=== PATIENT | male | born 1965 | race Caucasian/White ===

== ENCOUNTER → 2016-08-19 | Outpatient (CLI) | payer BC | LOC: KOH-I 11:16 | DX: G89.4 Chronic pain syndrome (principal); M96.1 Postlaminectomy syndrome, not elsewhere classified; M47.816 Spondylosis without myelopathy or radiculopathy, lumbar region; M48.06 Spinal stenosis, lumbar region; M48.07 Spinal stenosis, lumbosacral region; M51.37 Other intervertebral disc degeneration, lumbosacral region | CPT/HCPCS: 72131 ==

== ENCOUNTER 2020-07-25 11:37 | Emergency (ER) | payer OTHER ==
[~2020-07-25 11:37] MED LIST: ALLOPURINOL100 MG PO; ALPHA LIPOIC A200 MG PO; ALPHA LIPOIC ACID PO; AMLODIPINE BESY10 MG PO; ASPIRIN EC81 MG PO; AZITHROMYCIN250 MG PO; CARVEDILOL12.5 MG PO; CHLORTHALIDONE25 MG PO; CLONIDINE HCL0.1 MG PO; CORDARONE 200M200 MG PO; COREG 25MG TAB25 MG PO; CYMBALTA 30 MG30 MG PO; DOXAZOSIN MESYLA4 MG PO; DULOXETINE HCL60 MG PO; ELIQUIS5 MG PO; FISH OIL 1,0001 EAC3 PO; GLUCOTROL5 MG PO; HYDROCHLOROTH12.5 MG PO; HYDROCHLOROTHIA25 MG PO; HYDROCODON-ACE1 EAC2 PO; IMDUR ER TAB 3030 MG PO; ISOSORBIDE MONO30 MG PO; LASIX20 MG PO; LEVEMIR100 UNIT/1 SQ; LIPITOR TAB 2020 MG PO; LISINOPRIL40 MG PO; METOPROLOL TAR100 MG PO; NEURONTIN 300300 MG PO; NEURONTIN600 MG PO; NITROGLYCERIN0.4 MG SL; NORCO 10-325 T1 EACH PO; NORCO 5-325 TA1 EACH PO; NORVASC10 MG PO; NOVOLIN 70100 UNIT/1 SQ; NOVOLIN R SQ; NOVOLIN R100 UNIT/1 INJ; NOVOLIN R100 UNIT/1 SQ; OMNICEF 300 MG300 MG PO; SUPER B COMPLE150 MG PO; VITAMIN D31000 UNI1 PO; ZESTRIL40 MG PO; ZOFRAN ODT 4 MG4 MG PO; ZYLOPRIM 100 M100 MG PO
[2020-07-25 13:32] LABS: RED BLOOD COUNT 3.81 M/UL (4.20-5.50); WHITE BLOOD COUNT 9.4 K/UL (4.5-11.0)
[2020-07-25] MEDS ORDERED: BACTRIM DS TAB1 EACH PO (16:08)
[2020-07-25] MEDS ORDERED: KEFLEX CAP 500500 MG PO (16:08)
[2020-12-21] MEDS ORDERED: PERCOCET 5/325 T1 EA PO (11:47)
[2020-12-21] MEDS ORDERED: NOVOLOG FL100 UNIT/1 INJ (11:53)
== END 2020-07-25 16:50 | disposition home or self-care (01) ==
LOC: ER1 11:37
PROVIDERS: Physician Assistant
DX: M87.878 Other osteonecrosis, left toe(s) (principal); M86.8X8 Other osteomyelitis, other site; S80.01XA Contusion of right knee, initial encounter; E11.40 Type 2 diabetes mellitus with diabetic neuropathy, unspecified; R06.02 Shortness of breath; W19.XXXA Unspecified fall, initial encounter; Y92.238 Other place in hospital as the place of occurrence of the external cause
CPT/HCPCS: 73564; 73630; 80053; 85025; 85652; 86140

== ENCOUNTER 2020-07-26 15:45 | Inpatient (IN) | payer OTHER ==
[~2020-07-26] VITALS: Ht 190.5 cm; Wt 165.6 kg
[~2020-07-26 15:45] MED LIST changes: +BACTRIM DS TAB1 EACH PO; +KEFLEX CAP 500500 MG PO
[2020-07-26 19:45] LABS: HEMOGLOBIN 11.1 gm/dl (14.0-17.5); RED BLOOD COUNT 3.86 M/UL (4.20-5.50); WHITE BLOOD COUNT 12.7 K/UL (4.5-11.0)
[2020-07-27 04:06] LABS: HEMOGLOBIN 10.3 gm/dl (14.0-17.5); RED BLOOD COUNT 3.63 M/UL (4.20-5.50); WHITE BLOOD COUNT 9.6 K/UL (4.5-11.0)
[2020-07-29 04:42] LABS: HEMOGLOBIN 10.5 gm/dl (14.0-17.5); RED BLOOD COUNT 3.61 M/UL (4.20-5.50); WHITE BLOOD COUNT 7.2 K/UL (4.5-11.0)
[2020-07-30 02:54] LABS: HEMOGLOBIN 9.4 gm/dl (14.0-17.5); RED BLOOD COUNT 3.38 M/UL (4.20-5.50); WHITE BLOOD COUNT 7.8 K/UL (4.5-11.0)
[2020-07-30] MEDS ORDERED: BACTRIM DS TAB1 EACH PO (12:13)
[2020-07-30] MEDS ORDERED: ELIQUIS5 MG PO (12:13)
[2020-07-30] MEDS ORDERED: KEFLEX750 MG PO (16:30)
[2020-12-21] MEDS ORDERED: PERCOCET 5/325 T1 EA PO (11:47)
[2020-12-21] MEDS ORDERED: NOVOLOG FL100 UNIT/1 INJ (11:53)
== END 2020-07-30 16:58 | disposition home health service (06) | DRG 617 ==
LOC: MED SURG 4 15:45
PROVIDERS: Internal Medicine; Podiatrist Foot & Ankle Surgery; ADMIT Internal Medicine
PROC: 0Y6Y0Z0 Detachment at Left 5th Toe, Complete, Open Approach (ICD-10-PCS; principal; 2020-07-28 08:00)
DX: E11.69 Type 2 diabetes mellitus with other specified complication (principal); M86.8X7 Other osteomyelitis, ankle and foot; E11.52 Type 2 diabetes mellitus with diabetic peripheral angiopathy with gangrene; I96 Gangrene, not elsewhere classified; I13.0 Hypertensive heart and chronic kidney disease with heart failure and stage 1 through stage 4 chronic kidney disease, or unspecified chronic kidney disease; Z68.42 Body mass index [BMI] 45.0-49.9, adult; I48.20 Chronic atrial fibrillation, unspecified; I50.42 Chronic combined systolic (congestive) and diastolic (congestive) heart failure; Z20.822 Contact with and (suspected) exposure to COVID-19; B95.61 Methicillin susceptible Staphylococcus aureus infection as the cause of diseases classified elsewhere; E11.22 Type 2 diabetes mellitus with diabetic chronic kidney disease; N18.30 Chronic kidney disease, stage 3 unspecified; E66.01 Morbid (severe) obesity due to excess calories; E78.5 Hyperlipidemia, unspecified; G47.33 Obstructive sleep apnea (adult) (pediatric); I25.10 Atherosclerotic heart disease of native coronary artery without angina pectoris; Z95.1 Presence of aortocoronary bypass graft; Z79.01 Long term (current) use of anticoagulants; Z90.49 Acquired absence of other specified parts of digestive tract; Z88.1 Allergy status to other antibiotic agents; Z88.2 Allergy status to sulfonamides; Z79.82 Long term (current) use of aspirin; Z79.4 Long term (current) use of insulin; Z79.899 Other long term (current) drug therapy; Z82.49 Family history of ischemic heart disease and other diseases of the circulatory system; Z80.0 Family history of malignant neoplasm of digestive organs; Z80.9 Family history of malignant neoplasm, unspecified; Z83.3 Family history of diabetes mellitus; E11.40 Type 2 diabetes mellitus with diabetic neuropathy, unspecified; E11.65 Type 2 diabetes mellitus with hyperglycemia; M19.90 Unspecified osteoarthritis, unspecified site
CPT/HCPCS: ECHO; 36415; 71045; 73564; 73630; 80048; 80053; 80202; 82962; 83036; 83735; 83880; 84443; 85025; 85027; 85379; 85610; 85652; 86140; 87040; 87070; 87077; 87186; 87205; 93005; 93306; 93925; 93970; 94660; 94760; 97161; 99283; J1335; J1940; J2001; J2270; J2405; J2704; J2795; J3370; J7070; J7120; Q4133; U0002

== ENCOUNTER → 2020-08-31 | Outpatient (CLI) | payer OTHER ==
[~2020-08-31] MED LIST changes: +CLINDAMYCIN HC300 MG PO; +EFFIENT10 MG PO; +FUROSEMIDE40 MG PO; +GABAPENTIN600 MG PO; +KEFLEX CAP 250250 MG PO; +KEFLEX750 MG PO; +NOVOLOG FL100 UNIT/1 INJ; +PERCOCET 5/325 T1 EA PO
[2020-08-31 10:04] LABS: HEMOGLOBIN 11.6 gm/dl (14.0-17.5); RED BLOOD COUNT 4.01 M/UL (4.20-5.50); WHITE BLOOD COUNT 5.7 K/UL (4.5-11.0)
== END ==
LOC: LAB 09:33
PROVIDERS: Physician Assistant
DX: I25.10 Atherosclerotic heart disease of native coronary artery without angina pectoris (principal); R06.02 Shortness of breath; I48.0 Paroxysmal atrial fibrillation; I50.22 Chronic systolic (congestive) heart failure
CPT/HCPCS: 36415; 80053; 83880; 85025

== ENCOUNTER → 2020-09-11 | Outpatient (CLI) | payer OTHER | LOC: LAB 13:53 | PROVIDERS: Physician Assistant | DX: I25.10 Atherosclerotic heart disease of native coronary artery without angina pectoris (principal); I50.22 Chronic systolic (congestive) heart failure; R06.02 Shortness of breath | CPT/HCPCS: 36415; 80048 ==

== ENCOUNTER → 2020-09-27 | Outpatient (CLI) | payer OTHER | LOC: LAB 13:01 | PROVIDERS: Internal Medicine Nephrology | DX: N18.30 Chronic kidney disease, stage 3 unspecified (principal) | CPT/HCPCS: 36415; 80053; 82570; 84156 ==

== ENCOUNTER → 2020-10-05 | Outpatient (CLI) | payer OTHER | LOC: LAB 08:49 | PROVIDERS: Internal Medicine Nephrology | DX: N18.30 Chronic kidney disease, stage 3 unspecified (principal) | CPT/HCPCS: 36415; 80048 ==

== ENCOUNTER → 2020-10-24 | Outpatient (CLI) | payer OTHER | LOC: LAB 13:47 | PROVIDERS: Internal Medicine Nephrology | DX: N18.30 Chronic kidney disease, stage 3 unspecified (principal) | CPT/HCPCS: 36415; 80053; 82570; 84156 ==

== ENCOUNTER → 2020-12-19 | Outpatient (CLI) | payer OTHER ==
[~2020-12-19] MED LIST changes: +CEFDINIR300 MG PO; +CLARITIN 10MG T10 MG PO; +DOXYCYCLINE HY100 MG PO; +FLOMAX 0.4 MG0.4 MG PO; +LASIX 40 MG TAB40 MG PO; +NOVOLIN 70100 UNIT/1 SC; -NOVOLOG FL100 UNIT/1 INJ; +NOVOLOG FL100 UNIT/1 SC; +PROTONIX 40 MG40 M1 PO
[2020-12-19 15:21] LABS: HEMOGLOBIN 11.9 gm/dl (14.0-17.5); RED BLOOD COUNT 4.12 M/UL (4.20-5.50); WHITE BLOOD COUNT 6.8 K/UL (4.5-11.0)
== END ==
LOC: LAB 13:37
PROVIDERS: Internal Medicine Cardiovascular Disease
DX: I48.92 Unspecified atrial flutter (principal); I25.10 Atherosclerotic heart disease of native coronary artery without angina pectoris; R55 Syncope and collapse; I51.7 Cardiomegaly
CPT/HCPCS: 36415; 71046; 80048; 85025

== ENCOUNTER 2020-12-21 09:29 | Outpatient (CLI) | payer OTHER ==
[~2020-12-21] VITALS: Ht 190.5 cm; Wt 176.9 kg
[~2020-12-21 09:29] MED LIST changes: -CEFDINIR300 MG PO; -CLARITIN 10MG T10 MG PO; -CLINDAMYCIN HC300 MG PO; -DOXYCYCLINE HY100 MG PO; -EFFIENT10 MG PO; -FLOMAX 0.4 MG0.4 MG PO; -FUROSEMIDE40 MG PO; -GABAPENTIN600 MG PO; -GLUCOTROL5 MG PO; -KEFLEX CAP 250250 MG PO; -LASIX 40 MG TAB40 MG PO; -NOVOLIN 70100 UNIT/1 SC; -NOVOLOG FL100 UNIT/1 SC; -PERCOCET 5/325 T1 EA PO; -PROTONIX 40 MG40 M1 PO
[2020-12-21] MEDS ORDERED: GABAPENTIN600 MG PO (11:44)
[2020-12-21] MEDS ORDERED: ALPHA LIPOIC A200 MG PO (11:49)
[2020-12-21] MEDS ORDERED: FUROSEMIDE40 MG PO (11:49)
[2020-12-21] MEDS ORDERED: EFFIENT10 MG PO (11:50)
[2020-12-21] MEDS ORDERED: HYDROCHLOROTHIA25 MG PO (11:51)
[2020-12-21] MEDS ORDERED: CLINDAMYCIN HC300 MG PO (17:14)
[2020-12-21] MEDS ORDERED: KEFLEX CAP 250250 MG PO (17:14)
[2021-02-07] MEDS ORDERED: DOXYCYCLINE HY100 MG PO (15:53)
== END 2020-12-22 08:22 | disposition home or self-care (01) ==
LOC: CATH 09:29 → CDU 19:30 → PROG CARE 19:30 → CATH 19:30 → PROG CARE 19:31 → CDU 19:31 → PROG CARE 19:41 → CATH 12-22 08:22 → PROG CARE 12-22 08:22 → CDU 12-25 15:53 → PROG CARE 12-25 15:53
PROC: 0JH606Z Insertion of Pacemaker, Dual Chamber into Chest Subcutaneous Tissue and Fascia, Open Approach (ICD-10-PCS; principal; 2020-12-21)
PROC: 02HK0JZ Insertion of Pacemaker Lead into Right Ventricle, Open Approach (ICD-10-PCS; 2020-12-21)
PROC: 02H60JZ Insertion of Pacemaker Lead into Right Atrium, Open Approach (ICD-10-PCS; 2020-12-21)
DX: I48.92 Unspecified atrial flutter (principal); I50.22 Chronic systolic (congestive) heart failure; I13.0 Hypertensive heart and chronic kidney disease with heart failure and stage 1 through stage 4 chronic kidney disease, or unspecified chronic kidney disease; Z68.41 Body mass index [BMI] 40.0-44.9, adult; E66.01 Morbid (severe) obesity due to excess calories; Z20.822 Contact with and (suspected) exposure to COVID-19; I25.5 Ischemic cardiomyopathy; N18.30 Chronic kidney disease, stage 3 unspecified; R06.02 Shortness of breath; M19.90 Unspecified osteoarthritis, unspecified site; M10.9 Gout, unspecified; E78.00 Pure hypercholesterolemia, unspecified; R42 Dizziness and giddiness; E11.9 Type 2 diabetes mellitus without complications; I48.0 Paroxysmal atrial fibrillation; I25.119 Atherosclerotic heart disease of native coronary artery with unspecified angina pectoris; Z79.01 Long term (current) use of anticoagulants; Z79.4 Long term (current) use of insulin; Z88.2 Allergy status to sulfonamides; Z88.8 Allergy status to other drugs, medicaments and biological substances; Z95.1 Presence of aortocoronary bypass graft; Z99.89 Dependence on other enabling machines and devices; Z89.432 Acquired absence of left foot; Z91.040 Latex allergy status; Z87.442 Personal history of urinary calculi; I25.2 Old myocardial infarction; Z82.61 Family history of arthritis; Z82.49 Family history of ischemic heart disease and other diseases of the circulatory system; Z80.0 Family history of malignant neoplasm of digestive organs; Z83.42 Family history of familial hypercholesterolemia; Z83.3 Family history of diabetes mellitus
CPT/HCPCS: 33208; 33210; 82962; 93005; 93609; 93620; 93621; 93623; 99152; 99153; C1733; C1766; C1785; C1898; J1200; J1644; J2250; J2405; J3010; J3370; J7040; J7050

== ENCOUNTER → 2021-01-03 | Outpatient (CLI) | payer OTHER ==
[~2021-01-03] MED LIST changes: +CEFDINIR300 MG PO; +CLARITIN 10MG T10 MG PO; +CLINDAMYCIN HC300 MG PO; +DOXYCYCLINE HY100 MG PO; +EFFIENT10 MG PO; +FLOMAX 0.4 MG0.4 MG PO; +FUROSEMIDE40 MG PO; +GABAPENTIN600 MG PO; +GLUCOTROL5 MG PO; +KEFLEX CAP 250250 MG PO; +LASIX 40 MG TAB40 MG PO; +NOVOLIN 70100 UNIT/1 SC; +NOVOLOG FL100 UNIT/1 SC; +PERCOCET 5/325 T1 EA PO; +PROTONIX 40 MG40 M1 PO
== END ==
LOC: LAB 11:44
PROVIDERS: Internal Medicine Nephrology
DX: N18.30 Chronic kidney disease, stage 3 unspecified (principal)
CPT/HCPCS: 36415; 80053; 82570; 84156

== ENCOUNTER 2021-02-09 09:49 | Inpatient (IN) | payer OTHER ==
[~2021-02-09] VITALS: Ht 190.5 cm; Wt 144.9 kg
[~2021-02-09 09:49] MED LIST changes: -CEFDINIR300 MG PO; -CLARITIN 10MG T10 MG PO; -FLOMAX 0.4 MG0.4 MG PO; -GLUCOTROL5 MG PO; -LASIX 40 MG TAB40 MG PO; -NOVOLIN 70100 UNIT/1 SC; -NOVOLOG FL100 UNIT/1 SC; -PERCOCET 5/325 T1 EA PO; -PROTONIX 40 MG40 M1 PO
[2021-02-09 10:24] LABS: RED BLOOD COUNT 4.18 M/UL (4.20-5.50); WHITE BLOOD COUNT 12.2 K/UL (4.5-11.0)
[2021-02-09 10:51] LABS: BUN/CREATININE RATIO 18 (0-10)
[2021-02-10 05:48] LABS: HEMOGLOBIN 10.7 gm/dl (14.0-17.5)
[2021-02-10 05:49] LABS: RED BLOOD COUNT 3.72 M/UL (4.20-5.50)
[2021-02-10] MEDS ORDERED: NEURONTIN600 MG PO (08:02)
[2021-02-10] MEDS ORDERED: CLARITIN 10MG T10 MG PO (10:02)
[2021-02-10] MEDS ORDERED: PROTONIX 40 MG40 M1 PO (10:03)
[2021-02-10] MEDS ORDERED: GLUCOTROL5 MG PO (11:18)
[2021-02-10] MEDS ORDERED: PERCOCET 5/325 T1 EA PO (11:47)
[2021-02-10] MEDS ORDERED: NOVOLOG FL100 UNIT/1 SC (11:53)
[2021-02-10] MEDS ORDERED: NOVOLIN 70100 UNIT/1 SC (15:57)
[2021-02-10 23:30] LABS: BORDETELLA PARAPERTUSSIS Not Detected (Not Detectd); BORDETELLA PERTUSSIS Not Detected (Not Detectd); CHLAMYDIA PNEUMONIAE Not Detected (Not Detectd); CORONAVIRUS HKU1 Not Detected (Not Detectd); CORONAVIRUS OC43 Not Detected (Not Detectd); CORONOAVIRUS 229E Not Detected (Not Detectd); HUMAN METAPNEUMOVIRUS Not Detected (Not Detectd); HUMAN RHINOVIRUS/ENTEROVIRUS Not Detected (Not Detectd); INFLUENZA A Not Detected (Not Detectd); INFLUENZA B Not Detected (Not Detectd); MYCOPLASMA PNEUMONIAE Not Detected (Not Detectd); PARAINFLUENZA VIRUS 1 Not Detected (Not Detectd); PARAINFLUENZA VIRUS 2 Not Detected (Not Detectd); PARAINFLUENZA VIRUS 3 Not Detected (Not Detectd); PARAINFLUENZA VIRUS 4 Not Detected (Not Detectd); RESPIRATORY SYNCYTIAL VIRUS Not Detected (Not Detectd)
[2021-02-11 00:37] LABS: SARS-CoV-2 NOT DETECTED (Not Detectd)
[2021-02-11 00:38] LABS: CORONAVIRUS NL63 DETECTED (Not Detectd)
[2021-02-11 03:55] LABS: HEMOGLOBIN 11.2 gm/dl (14.0-17.5); RED BLOOD COUNT 3.91 M/UL (4.20-5.50); WHITE BLOOD COUNT 9.4 K/UL (4.5-11.0)
[2021-02-12 03:27] LABS: HEMOGLOBIN 10.3 gm/dl (14.0-17.5); RED BLOOD COUNT 3.78 M/UL (4.20-5.50); WHITE BLOOD COUNT 7.8 K/UL (4.5-11.0)
[2021-02-13 03:59] LABS: HEMOGLOBIN 11.3 gm/dl (14.0-17.5); RED BLOOD COUNT 4.02 M/UL (4.20-5.50)
[2021-02-13 04:06] LABS: WHITE BLOOD COUNT 10.9 K/UL (4.5-11.0)
[2021-02-13] MEDS ORDERED: CEFDINIR300 MG PO (10:48)
[2021-02-13] MEDS ORDERED: LASIX 40 MG TAB40 MG PO (10:48)
== END 2021-02-13 12:12 | disposition home or self-care (01) | DRG 291 ==
LOC: ER1 09:49 → PROG CARE 12:00 → CDU 12:00 → PROG CARE 02-10 16:23
PROVIDERS: Internal Medicine; Physician Assistant Medical; Student in an Organized Health Care Education/Training Program; ADMIT Internal Medicine
PROC: B24BZZ4 Ultrasonography of Heart with Aorta, Transesophageal (ICD-10-PCS; principal; 2021-02-09)
PROC: 3E0333Z Introduction of Anti-inflammatory into Peripheral Vein, Percutaneous Approach (ICD-10-PCS; 2021-02-09)
PROC: 5A0935A Assistance with Respiratory Ventilation, Less than 24 Consecutive Hours, High Flow/Velocity Cannula (ICD-10-PCS; 2021-02-12)
DX: I13.0 Hypertensive heart and chronic kidney disease with heart failure and stage 1 through stage 4 chronic kidney disease, or unspecified chronic kidney disease (principal); Z20.822 Contact with and (suspected) exposure to COVID-19; J96.01 Acute respiratory failure with hypoxia; J15.9 Unspecified bacterial pneumonia; I50.33 Acute on chronic diastolic (congestive) heart failure; N18.4 Chronic kidney disease, stage 4 (severe); N17.9 Acute kidney failure, unspecified; I48.92 Unspecified atrial flutter; E66.2 Morbid (severe) obesity with alveolar hypoventilation; Z68.42 Body mass index [BMI] 45.0-49.9, adult; E87.1 Hypo-osmolality and hyponatremia; E78.5 Hyperlipidemia, unspecified; I07.1 Rheumatic tricuspid insufficiency; I27.20 Pulmonary hypertension, unspecified; G47.33 Obstructive sleep apnea (adult) (pediatric); E11.22 Type 2 diabetes mellitus with diabetic chronic kidney disease; I44.30 Unspecified atrioventricular block; E83.42 Hypomagnesemia; E86.1 Hypovolemia; Z79.4 Long term (current) use of insulin; Z95.0 Presence of cardiac pacemaker; Z95.1 Presence of aortocoronary bypass graft; Z95.5 Presence of coronary angioplasty implant and graft; Z90.49 Acquired absence of other specified parts of digestive tract; Z88.1 Allergy status to other antibiotic agents; Z88.2 Allergy status to sulfonamides; Z88.8 Allergy status to other drugs, medicaments and biological substances; Z82.49 Family history of ischemic heart disease and other diseases of the circulatory system; Z80.0 Family history of malignant neoplasm of digestive organs; Z83.3 Family history of diabetes mellitus; Z79.01 Long term (current) use of anticoagulants; Z89.422 Acquired absence of other left toe(s)
CPT/HCPCS: ECHO; 36415; 36600; 71045; 78579; 80048; 80053; 81001; 82550; 82553; 82803; 82962; 83036; 83605; 83690; 83735; 83874; 83880; 84100; 84484; 85025; 85027; 85379; 85652; 86140; 87040; 87205; 87633; 93005; 93306; 94640; 94760; 96374; 97161; 97166; 99285; A9540; J0456; J0696; J1100; J1650; J1940; J3370; J7030; P9047; U0002

== ENCOUNTER 2021-03-11 18:38 | Emergency (ER) | payer OTHER ==
[~2021-03-11 18:38] MED LIST changes: +CEFDINIR300 MG PO; +CLARITIN 10MG T10 MG PO; +GLUCOTROL5 MG PO; +LASIX 40 MG TAB40 MG PO; +NOVOLIN 70100 UNIT/1 SC; +NOVOLOG FL100 UNIT/1 SC; +PERCOCET 5/325 T1 EA PO; +PROTONIX 40 MG40 M1 PO
[2021-03-11 19:16] LABS: RED BLOOD COUNT 4.43 M/UL (4.20-5.50); WHITE BLOOD COUNT 9.8 K/UL (4.5-11.0)
[2021-03-12] MEDS ORDERED: FLOMAX 0.4 MG0.4 MG PO (00:40)
== END 2021-03-12 00:51 | disposition home or self-care (01) ==
LOC: ER1 18:38
PROVIDERS: Physician Assistant
DX: E11.65 Type 2 diabetes mellitus with hyperglycemia (principal); E66.01 Morbid (severe) obesity due to excess calories; R51.9 Headache, unspecified; R33.9 Retention of urine, unspecified; I13.0 Hypertensive heart and chronic kidney disease with heart failure and stage 1 through stage 4 chronic kidney disease, or unspecified chronic kidney disease; E11.22 Type 2 diabetes mellitus with diabetic chronic kidney disease; N18.9 Chronic kidney disease, unspecified; I50.30 Unspecified diastolic (congestive) heart failure; E78.5 Hyperlipidemia, unspecified; I25.10 Atherosclerotic heart disease of native coronary artery without angina pectoris; Z95.0 Presence of cardiac pacemaker; Z95.1 Presence of aortocoronary bypass graft; Z90.49 Acquired absence of other specified parts of digestive tract; Z88.8 Allergy status to other drugs, medicaments and biological substances; Z88.2 Allergy status to sulfonamides; Z20.822 Contact with and (suspected) exposure to COVID-19
CPT/HCPCS: 71045; 80053; 81001; 85025; 99284; U0002

== ENCOUNTER → 2021-04-02 | Outpatient (CLI) | payer OTHER ==
[~2021-04-02] MED LIST changes: +FLOMAX 0.4 MG0.4 MG PO
== END ==
LOC: US 07:39
PROVIDERS: Internal Medicine Nephrology
DX: N18.32 Chronic kidney disease, stage 3b (principal); L03.119 Cellulitis of unspecified part of limb
CPT/HCPCS: 36415; 80053; 93971

== ENCOUNTER → 2021-04-03 | Outpatient (CLI) | payer OTHER ==
[2021-04-03 13:25] LABS: URINE TOTAL PROTEIN 181 mg/dl
== END ==
LOC: LBRF 11:45
PROVIDERS: Internal Medicine Nephrology
DX: N18.32 Chronic kidney disease, stage 3b (principal)
CPT/HCPCS: 84156

== ENCOUNTER 2021-05-31 10:20 | Emergency (ER) | payer OTHER ==
[2021-05-31 11:21] LABS: HEMOGLOBIN 9.1 gm/dl (14.0-17.5); RED BLOOD COUNT 3.29 M/UL (4.20-5.50); WHITE BLOOD COUNT 12.4 K/UL (4.5-11.0)
== END 2021-05-31 14:39 | disposition home or self-care (01) ==
LOC: ER1 10:20
PROVIDERS: Nurse Practitioner
DX: L03.115 Cellulitis of right lower limb (principal); E66.9 Obesity, unspecified; I11.0 Hypertensive heart disease with heart failure; I50.9 Heart failure, unspecified; I25.2 Old myocardial infarction; E11.9 Type 2 diabetes mellitus without complications; Z95.5 Presence of coronary angioplasty implant and graft; Z95.1 Presence of aortocoronary bypass graft; Z88.1 Allergy status to other antibiotic agents; Z91.040 Latex allergy status; Z88.2 Allergy status to sulfonamides; Z95.0 Presence of cardiac pacemaker; Z79.01 Long term (current) use of anticoagulants
CPT/HCPCS: 80053; 83605; 85025; 85610; 85652; 85730; 86140; 87040; 93971; 99283

== ENCOUNTER 2021-06-11 08:53 | Emergency (ER) | payer OTHER ==
[2021-06-11 12:37] LABS: RED BLOOD COUNT 3.66 M/UL (4.20-5.50); WHITE BLOOD COUNT 8.9 K/UL (4.5-11.0)
== END 2021-06-11 14:30 | disposition home or self-care (01) ==
LOC: ER1 08:53
PROVIDERS: Physician Assistant
DX: I87.8 Other specified disorders of veins (principal); E11.22 Type 2 diabetes mellitus with diabetic chronic kidney disease; E11.65 Type 2 diabetes mellitus with hyperglycemia; I12.9 Hypertensive chronic kidney disease with stage 1 through stage 4 chronic kidney disease, or unspecified chronic kidney disease; N18.30 Chronic kidney disease, stage 3 unspecified; G89.29 Other chronic pain; E66.01 Morbid (severe) obesity due to excess calories; Z88.1 Allergy status to other antibiotic agents; E78.5 Hyperlipidemia, unspecified; Z88.2 Allergy status to sulfonamides; Z90.49 Acquired absence of other specified parts of digestive tract; Z98.890 Other specified postprocedural states
CPT/HCPCS: 80053; 85025; 85652; 86140; 93005; 99283

== ENCOUNTER 2021-06-17 03:47 | Inpatient (IN) | payer OTHER ==
[~2021-06-17] VITALS: Ht 190.5 cm; Wt 167.8 kg
[~2021-06-17 03:47] MED LIST changes: -NOVOLIN 70100 UNIT/1 SC; -NOVOLOG FL100 UNIT/1 SC; +NOVOLOG FL100 UNIT/1 SQ
[2021-06-17 05:31] LABS: BUN/CREATININE RATIO 31 (0-10)
[2021-06-17 05:55] LABS: HEMOGLOBIN 10.1 gm/dl (14.0-17.5); RED BLOOD COUNT 3.86 M/UL (4.20-5.50)
[2021-06-17] MEDS ORDERED: CARVEDILOL25 MG PO (11:07)
[2021-06-17] MEDS ORDERED: NITROGLYCERIN0.4 MG SL (11:12)
[2021-06-17] MEDS ORDERED: ELIQUIS5 MG PO (11:13)
[2021-06-17] MEDS ORDERED: B COMPLEX1 EACH PO (11:14)
[2021-06-17] MEDS ORDERED: ARTHRITIS PAIN650 M1 PO (11:15)
[2021-06-18 05:33] LABS: HEMOGLOBIN 9.1 gm/dl (14.0-17.5); WHITE BLOOD COUNT 7.6 K/UL (4.5-11.0)
[2021-06-18 05:45] LABS: RED BLOOD COUNT 3.3 M/UL (4.20-5.50)
[2021-06-18] MEDS ORDERED: DOXYCYCLINE HY100 M2 PO (13:48)
[2021-06-19 16:14] LABS: ORGANISM ID Not indicated. (.); SPECIMEN SOURCE Urine (.); STREPTOCOCCUS PNEUMONIAE AG Negative (Negative)
[2021-06-23] MEDS ORDERED: DOXYCYCLINE HY100 M2 PO (18:56)
[2021-06-26] MEDS ORDERED: BUMETANIDE1 MG PO (10:14)
== END 2021-06-18 15:38 | disposition home or self-care (01) | DRG 193 ==
LOC: ER1 03:47 → CDU 06:44 → M/S 18:59
PROVIDERS: Family Medicine; Internal Medicine; Physician Assistant; ADMIT Internal Medicine
DX: J18.9 Pneumonia, unspecified organism (principal); I50.33 Acute on chronic diastolic (congestive) heart failure; I13.0 Hypertensive heart and chronic kidney disease with heart failure and stage 1 through stage 4 chronic kidney disease, or unspecified chronic kidney disease; N17.9 Acute kidney failure, unspecified; N18.30 Chronic kidney disease, stage 3 unspecified; E11.22 Type 2 diabetes mellitus with diabetic chronic kidney disease; E83.42 Hypomagnesemia; E78.5 Hyperlipidemia, unspecified; I25.10 Atherosclerotic heart disease of native coronary artery without angina pectoris; E66.9 Obesity, unspecified; Z20.822 Contact with and (suspected) exposure to COVID-19; G89.29 Other chronic pain; I48.91 Unspecified atrial fibrillation; Z95.1 Presence of aortocoronary bypass graft; Z95.5 Presence of coronary angioplasty implant and graft; Z90.49 Acquired absence of other specified parts of digestive tract; Z98.890 Other specified postprocedural states; Z88.2 Allergy status to sulfonamides; Z88.1 Allergy status to other antibiotic agents; Z91.040 Latex allergy status; Z82.49 Family history of ischemic heart disease and other diseases of the circulatory system; Z88.8 Allergy status to other drugs, medicaments and biological substances
CPT/HCPCS: 36415; 71045; 71250; 80053; 81001; 82550; 82553; 82962; 83036; 83540; 83550; 83605; 83735; 83874; 83880; 84100; 84484; 85025; 86140; 87040; 87086; 87278; 87899; 93005; 94640; 94760; 99285; J1650; J1940; J2543; J3475; U0002

== ENCOUNTER 2021-07-01 17:15 | Inpatient (IN) | payer OTHER ==
[~2021-07-01] VITALS: Ht 190.5 cm; Wt 171.1 kg
[~2021-07-01 17:15] MED LIST changes: +ARTHRITIS PAIN650 M1 PO; +B COMPLEX1 EACH PO; +BUMETANIDE1 MG PO; +CARVEDILOL25 MG PO; +DOXYCYCLINE HY100 M2 PO
[2021-07-01] MEDS ORDERED: BREO ELLIPTA 21 EACH INH (18:28)
[2021-07-01 19:18] LABS: HEMOGLOBIN 9.8 gm/dl (14.0-17.5); RED BLOOD COUNT 3.64 M/UL (4.20-5.50); WHITE BLOOD COUNT 6.5 K/UL (4.5-11.0)
[2021-07-01 19:23] LABS: BUN/CREATININE RATIO 32 (0-10)
[2021-07-02 03:44] LABS: HEMOGLOBIN 9.7 gm/dl (14.0-17.5); RED BLOOD COUNT 3.62 M/UL (4.20-5.50); WHITE BLOOD COUNT 7.2 K/UL (4.5-11.0)
[2021-07-02 04:12] LABS: BUN/CREATININE RATIO 33 (0-10)
[2021-07-03 03:58] LABS: HEMOGLOBIN 9.4 gm/dl (14.0-17.5); RED BLOOD COUNT 3.47 M/UL (4.20-5.50); WHITE BLOOD COUNT 5.6 K/UL (4.5-11.0)
[2021-07-03] MEDS ORDERED: AMIODARONE HCL200 MG PO ×3 (12:04→12:08)
[2021-07-03] MEDS ORDERED: LASIX40 MG PO (12:04)
== END 2021-07-03 14:39 | disposition home or self-care (01) | DRG 291 ==
LOC: ER1 17:15 → CDU 18:31 → PROG CARE 07-02 17:48
PROVIDERS: Emergency Medicine; Internal Medicine; ADMIT Internal Medicine
PROC: 5A2204Z Restoration of Cardiac Rhythm, Single (ICD-10-PCS; principal; 2021-07-02)
DX: I13.0 Hypertensive heart and chronic kidney disease with heart failure and stage 1 through stage 4 chronic kidney disease, or unspecified chronic kidney disease (principal); I50.33 Acute on chronic diastolic (congestive) heart failure; N17.9 Acute kidney failure, unspecified; Z68.41 Body mass index [BMI] 40.0-44.9, adult; I48.92 Unspecified atrial flutter; Z20.822 Contact with and (suspected) exposure to COVID-19; E66.01 Morbid (severe) obesity due to excess calories; I25.10 Atherosclerotic heart disease of native coronary artery without angina pectoris; E11.22 Type 2 diabetes mellitus with diabetic chronic kidney disease; I48.0 Paroxysmal atrial fibrillation; M19.90 Unspecified osteoarthritis, unspecified site; M10.9 Gout, unspecified; E78.00 Pure hypercholesterolemia, unspecified; I25.5 Ischemic cardiomyopathy; R53.81 Other malaise; G47.33 Obstructive sleep apnea (adult) (pediatric); R42 Dizziness and giddiness; N18.30 Chronic kidney disease, stage 3 unspecified; Z95.1 Presence of aortocoronary bypass graft; Z82.49 Family history of ischemic heart disease and other diseases of the circulatory system; Z99.81 Dependence on supplemental oxygen; Z95.0 Presence of cardiac pacemaker; Z86.79 Personal history of other diseases of the circulatory system; Z79.899 Other long term (current) drug therapy; Z79.82 Long term (current) use of aspirin; I25.2 Old myocardial infarction; Z87.442 Personal history of urinary calculi; Z98.890 Other specified postprocedural states; Z82.61 Family history of arthritis; Z83.42 Family history of familial hypercholesterolemia; Z83.3 Family history of diabetes mellitus; Z80.0 Family history of malignant neoplasm of digestive organs; Z79.01 Long term (current) use of anticoagulants; Z88.8 Allergy status to other drugs, medicaments and biological substances; Z79.4 Long term (current) use of insulin
CPT/HCPCS: 36415; 36600; 71045; 80053; 81001; 82550; 82553; 82803; 82962; 83540; 83550; 83605; 83735; 83874; 83880; 84100; 84484; 85025; 85027; 85652; 86140; 87040; 87086; 93005; 94660; 94760; 96374; 96375; 99285; G0378; J0360; J1200; J1940; J2250; J2270; U0002